=== PATIENT | male | born 1965 | race Caucasian/White ===

== ENCOUNTER → 2016-06-21 | Outpatient (CLI) | payer OTHER ==
[~2016-06-21] MED LIST: DENIES
== END ==
LOC: CAT 08:06
DX: R91.1 Solitary pulmonary nodule (principal)

== ENCOUNTER → 2016-07-03 | Outpatient (CLI) | payer OTHER ==
[~2016-07-03] VITALS: Ht 193 cm; Wt 105.7 kg
--- NOTE | ~2016-07-03 | S ---
[facility] [employer] [address] [place] [address] SURGICAL PATH RPT PROCEDURE Name: EFRAÍN GORDILLO Room #: REG CLI M.R.#: [id number] Admission: 07/03/16 Date of : 61 Discharge: Report #: [id number] Path Case #: [id number] PATHOLOGY REPORT COLLECTION DATE: 07/03/2016 RECEIVED DATE: 07/03/2016 SUBMITTING PHYS: Dr. Refugio Mayorga OTHER PHYS: Dr. Ana Vargas SPECIMEN(S) RECEIVED: A.Left lung biopsy * * * * * * * * * * * * FINAL DIAGNOSIS: A. Left lung, needle core biopsy: - Fragments compatible with hemangioma; negative for malignancy. - Alveolated lung parenchyma with intra-alveolar hemorrhage. (IUV; 07/05/16) PATHOLOGIST: Annita Grijalva M.D. REPORT ELECTRONICALLY SIGNED BY: Annita Grijalva M.D. DATE/TIME: 07/05/2016 12:55 * * * * * * * * * * * * GROSS PATHOLOGY: The specimen is received in formalin labeled "Efraín Gordillo, left lung biopsy". Received are multiple needle cores of pale paul friable soft tissue measuring 0.5 x 0.5 x 0.1 cm in aggregate dimensions. The specimen is filtered and entirely submitted in cassette A1. (CAA; 07/04/2016) CLINICAL HISTORY: Pulmonary nodule INITIAL CPT CODE(S): A; 80055 Professional services performed by [facility] at [facility] [employer] [place] [address] Technical services performed by [facility] at [address] [place] [address], [address], [place] [address]. [facility] [address] [place] [address] SURGICAL PATH RPT PROCEDURE Name: EFRAÍN GORDILLO Room #: REG MONSERRAT Chaves#: [id number] Admission: 07/03/16 Date of : 61 Discharge: Report #: [id number] Path Case #: [id number] [address] [address] PHONE: [phone] DIRECTOR: Micah Brand M.D. * * * END OF REPORT * * *
[2016-07-03 09:01] LABS: HEMATOCRIT 44.1 % (42.0-52.0); HEMOGLOBIN 15.2 gm/dL (14.0-18.0); MCHC 34.4 g/dL (28.0-37.0); MCV 89.9 fL (80.0-100.0); RBC 4.9 mil/uL (4.50-6.00); RDW 13.9 % (10.5-14.5); WBC 3.5 thou/uL (4.0-11.0)
[2016-07-03 09:11] VITALS: BP 140/62
[2016-07-03 09:13] LABS: CALCIUM 8.9 mg/dL (8.5-10.1); CREATININE 1.1 mg/dL (0.7-1.3); POTASSIUM 4.6 mmol/L (3.5-5.1)
[2016-07-03 09:18] LABS: ALBUMIN 4.2 g/dL (3.4-5.0); TOTAL BILIRUBIN 0.4 mg/dL (<0.1-1.0); TOTAL PROTEIN 7.8 g/dL (6.4-8.2)
[2016-07-03 09:26] LABS: APTT 26.8 Seconds (24.5-32.8)
[2016-07-03 09:55] VITALS: BP 158/76
[2016-07-03 10:06] VITALS: BP 159/91
[2016-07-03 10:22] VITALS: BP 154/91
[2016-07-03 10:36] VITALS: BP 139/80
== END | disposition home or self-care (01) ==
LOC: CAT 08:17
PROVIDERS: Internal Medicine Pulmonary Disease
DX: S27.321A Contusion of lung, unilateral, initial encounter (principal)

== ENCOUNTER → 2021-04-16 | Outpatient (CLI) | payer OTHER | LOC: CAT 08:07 | PROVIDERS: ATTEND Internal Medicine Cardiovascular Disease | DX: Z13.6 Encounter for screening for cardiovascular disorders (principal); I25.10 Atherosclerotic heart disease of native coronary artery without angina pectoris; E78.00 Pure hypercholesterolemia, unspecified ==